=== PATIENT | female | born 1940 | race Caucasian/White ===

== ENCOUNTER 2017-10-15 13:30 | Emergency (ER) | payer MEDICARE, SELFPAY ==
[2017-10-15 13:30] VITALS: BP 185/86; PULSE 79; RESP 18; TEMP 37.1; O2SAT 95; BMI 43.0
--- NOTE | 2017-10-15 13:56 | ED.VISSUMM ---
- ER Visit Summary Date of Service: 10/15/17 Chief Complaint: [Right-sided facial pain] History of Present Illness: The patient is a 77 F [presents to the emergency department with right-sided facial pain that started this morning. Patient denies any trauma. Patient states she has does sleep on that side of her face typically but is never had an issue like this before. Patient complains of severe pain from in front of her right ear all the way down to the jaw. Patient has pain with swallowing but does not have a sore throat. Patient has not had any recent injury. Patient denies any recent illness.] Physical Examination: [HEENT-PERRLA, EOMI. Cranial nerves II through XII grossly intact. TMs clear. Mucous membranes moist. No adenopathy. Patient is edentulous and has no tenderness over the gingiva. Patient does have tenderness to the right side of her face on palpation but there is no evidence of erythema or edema. Patient does not have any swelling noted of the parotid gland or submandibular glands. Cardiovascular-regular rate and rhythm without murmur or ectopy Lungs-clear to auscultation, chest wall stable without crepitus or subcu emphysema Abdomen-normoactive bowel sounds, soft, nontender, no rebound or rigidity, no peritoneal signs. Extremities-intact ?4, normal range of motion, normal pulses, atraumatic] Test Results: [None indicated] Emergency Department Course and Treatment: [Patient already on Neurontin and advised to take its regularly as I suspect trigeminal neuralgia as the etiology of her pain. Patient also has oxycodone at home. Patient on Neurontin for chronic back pain but only takes it as needed. I advised her on a regular schedule.] Treatment Plan: [Patient to continue with Neurontin and oxycodone for pain] Disposition: [Discharged home in stable condition. Patient will be referred to ENT on-call.] Impression: [Right-sided facial pain-suspect trigeminal neuralgia] This note was generated with [employer] dictation software. It may contain incorrect words, spelling, and punctuation that were not noted in review of the chart prior to signing ED Disposition - Plan for ED Patient: Chief Complaint: Other, Pain/Inj Referrals: Ricardo Campos MD [Primary Care Provider] -
--- NOTE | 2017-10-15 13:58 | ED.DEP ---
ED Disposition - Plan for ED Patient: Chief Complaint: Other, Pain/Inj Instructions: ED Neuralgia Trigeminal Referrals: Ricardo Campos MD [Primary Care Provider] - Ryley Cano MD [STAFF PHYSICIAN] - 3-5 Days Additional Instructions: Take 300mg of neurontin today and 300mg twice per day tomorrow then 300mg three times per day
== END 2017-10-15 14:07 | disposition intermediate care facility (04) ==
LOC: ED 14:00
PROVIDERS: Emergency Provider Emergency Medicine; Family Provider Family Medicine; PCP Family Medicine
DX: R51 Headache (principal); E11.9 Type 2 diabetes mellitus without complications; I10 Essential (primary) hypertension; K50.90 Crohn's disease, unspecified, without complications; M54.9 Dorsalgia, unspecified; G89.29 Other chronic pain; Z79.899 Other long term (current) drug therapy
CPT/HCPCS: 99282